=== PATIENT | female | born 1990 | race Caucasian/White ===

== ENCOUNTER 2018-05-05 17:19 | Emergency (ER) | payer MEDICAID ==
[~2018-05-05] VITALS: Ht 152.4 cm; Wt 50.8 kg
--- NOTE | 2018-05-05 17:35 | NUR ---
BIB SELF W C/O BRIGHT RED VAGINAL BLEEDING AND L RIB PAIN. TO ER BED 16, VSS, CHANGED TO WN. AWAITING MD MARKS.
--- NOTE | 2018-05-05 18:10 | NUR ---
[employer] DEGRASSE AT BEDSIDE
[2018-05-05 18:42] LABS: BASOPHILS % (AUTO) 0.6 % (0.0-2.0); EOSINOPHILS % (AUTO) 1.5 % (0.0-6.0); HEMATOCRIT 35 % (33-45); HEMOGLOBIN 12.2 g/dL (11.5-14.8); LYMPHOCYTES # (AUTO) 1.5 /CMM (0.8-4.8); LYMPHOCYTES % (AUTO) 21.7 % (20.0-44.0); MEAN CORPUSCULAR HGB CONC 35 g/dl (31.0-36.0); MEAN CORPUSCULAR VOLUME 93 fL (82-100); MONOCYTES # (AUTO) 0.5 /CMM (0.1-1.30); NEUTROPHILS # (AUTO) 4.9 /CMM (1.8-8.9); NEUTROPHILS % (AUTO) 69.2 % (43.0-81.0); PLATELET COUNT (AUTO) 285 /CMM (150-450); RED BLOOD CELL COUNT(AUTO) 3.81 MIL/uL (4.0-5.2)
--- NOTE | 2018-05-05 18:55 | NUR ---
US TECH AT BEDSIDE
--- NOTE | 2018-05-05 18:55 | NUR ---
URINE SPECIMEN SENT TO LAB
[2018-05-05 18:58] LABS: CALCIUM, SERUM 8.5 mg/dL (8.5-10.1); CREATININE 0.4 mg/dL (0.6-1.3); POTASSIUM 3.7 mmol/L (3.5-5.1)
[2018-05-05 19:05] LABS: APPEARANCE,URINE Slightly Cloudy (CLEAR); BILIRUBIN,URINE Negative (NEGATIVE); BLOOD, URINE Large Ery/uL (NEGATIVE); COLOR,URINE Yellow (YELLOW); KETONES,URINE Negative (NEGATIVE); LEUKOCYTE ESTERASE ,URINE Trace (NEGATIVE); NITRITE, URINE Negative (NEGATIVE); PROTEIN,URINE Negative (NEGATIVE); UGLUCOSE Negative (NEGATIVE); UROBILINOGEN,URINE 0.2 EU/dL (0.2)
--- NOTE | 2018-05-05 19:22 | NUR ---
REPORT GIVEN TO SYLVAIN CLAIRE FOR AB
--- NOTE | 2018-05-05 19:30 | NUR ---
RECEIVED ENDORSEMENT FROM [facility] INST[facility]. CHECKED ON Pt. Pt IS AWAKE, RESTING IN BED. NO S/S OF ACUTE DISTRESS OR SOB NOTED. A/OX4, VERBAL, ABLE TO MAKE NEEDS KNOWN. WILL CONTINUE TO MONITOR Pt's CONDITION AND SAFETY.
[2018-05-05 19:34] LABS: BACTERIA,URINE 1+ /HPF (None Seen)
--- NOTE | 2018-05-05 19:47 | NUR ---
MD AT BEDSIDE SPEAKING WITH Pt
--- NOTE | 2018-05-05 20:02 | NUR ---
Patient discharged to home in stable condition. Written and verbal after care instructions given. Patient verbalizes understanding of instruction. Patient left facility on foot with steady gait. No s/s of acute distress of sob noted. vs stable. ID bands removed.
[2018-05-05 20:03] VITALS: BP 120/66
== END 2018-05-05 20:03 | disposition home or self-care (01) ==
LOC: ER 17:24
DX: O20.0 Threatened abortion (principal); Z87.891 Personal history of nicotine dependence
CPT/HCPCS: 36415; 76805-TC; 80048-TC; 81000-TC; 84702-TC; 85025-TC; 85730-TC; 87086-TC; A4606; Z7610